=== PATIENT | male | born 1975 | race Caucasian/White ===

== ENCOUNTER 2020-11-05 20:28 | Emergency (ER) | payer SELFPAY ==
[~2020-11-05] VITALS: Ht 175.3 cm; Wt 68.7 kg
[2020-11-05] MEDS ORDERED: IV RINGERS SOLUTION,LACTATED 1,000 ML IV ONE ×2 (21:00→22:15)
[2020-11-05 21:25] LABS: BASO % 0 % (0-3); EOS % 0 % (0-3); HEMATOCRIT 47.2 % (39.0-53.0); HEMOGLOBIN 16.2 g/dL (13.0-17.5); LYMPH # 1.2 x10^3/uL (1.0-4.8); LYMPH % 11 % (24-48); MEAN CORPUSCULAR HEMOGLOBIN 34 pg (25-35); MEAN CORPUSCULAR HGB CONC 34 g/dL (31-37); MEAN CORPUSCULAR VOLUME 98 fL (79-100); MONO # 0.7 x10^3/uL (0.0-1.1); MONO % 7 % (0-9); NEUT # 8.7 x10^3uL (1.8-7.7); NEUT % 82 % (31-73); PLATELET COUNT 154 x10^3/uL (140-400); RED BLOOD COUNT 4.82 x10^6/uL (4.30-5.70); RED CELL DISTRIBUTION WIDTH 13.1 % (11.5-14.5); WHITE BLOOD COUNT 10.7 x10^3/uL (4.0-11.0)
[2020-11-05 21:32] LABS: CALCIUM 8.9 mg/dL (8.5-10.1); CREATININE 0.9 mg/dL (0.7-1.3); GFR 92.1; POTASSIUM 3.4 mmol/L (3.5-5.1)
--- NOTE | 2020-11-05 22:06 | PHYS DOC ---
Past History Past Medical History: Alcoholism, Hypertension Past Surgical History: No Surgical History Alcohol Use: Heavy Adult General Chief Complaint Chief Complaint: WITHDRAWAL HPI HPI Patient is a 44-year-old male with past medical history significant for alcoholism and hypertension who presents with a chief complaint of lightheadedness and concern for alcohol withdrawal. States he drinks about 4-5 mixed drinks daily and has been for a while but decided he has had enough and wanted to quit. States his last drink was 7 PM last night, so he is approximately 27 hours out from his last drink. Denies any headache, chest pain, shortness of breath, abdominal pain, dysuria, hematuria or blood in the stool. States that he did have an episode of nonbloody nonbilious emesis earlier in the day but felt fine afterwards and was able to eat. States that he was at home a couple hours ago cooking dinner for the family when he felt lightheaded and had to sit down. States that several years ago he tried to quit drinking and had a seizure and went to the hospital and was concerned that he was can have another seizure so came into the ED. States that he has not taken his hypertension medications either for several months because they upset his stomach. Denies any recent travel, illnesses, fevers, known ill contacts. Denies any other drug use. States that currently in the emergency department he is asymptomatic. Review of Systems Review of Systems Review of systems otherwise unremarkable except noted in HPI Current Medications Current Medications Current Medications Medications (Trade) Dose Ordered Sig/Inge Start Time Stop Time Status Last Admin Dose Admin Lactated Ringer's 1,000 ml @ 1,000 mls/hr 1X ONCE 11/05/20 21:00 11/05/20 21:59 DC 11/05/20 21:57 1,000 MLS/HR Allergies Allergies Allergies Coded Allergies Type Severity Reaction Last Updated Verified No Known Drug Allergies 11/05/20 No Physical Exam Physical Exam Constitutional: Well developed, well nourished, no acute distress, non-toxic appearance. [] HENT: Normocephalic, atraumatic, oropharynx dry, no oral exudates, Eyes: PERRLA, conjunctival injection, no discharge. [] Neck: Normal range of motion, no tenderness, supple, no stridor. [] Cardiovascular:Heart rate regular rhythm, no murmur [] Lungs & Thorax: Bilateral breath sounds clear to auscultation [] Abdomen: soft, no tenderness, no masses, no pulsatile masses. [] Skin: Warm, dry, no erythema, no rash. [] Back: No tenderness, Extremities: No tenderness, no cyanosis, no clubbing, ROM intact, no edema. [] Neurologic: Alert and oriented X 3, grossly normal motor function, grossly normal sensory function, cranial nerves normal, no focal deficits noted. [] Psychologic: Affect normal, judgement normal, mood normal. [] Current Patient Data Vital Signs Vital Signs Date Time Temp Pulse Resp B/P (MAP) Pulse Ox O2 Delivery O2 Flow Rate FiO2 11/05/20 20:35 97.6 70 20 164/105 (124) 97 Room Air Lab Results Laboratory Tests Test 11/05/20 21:00 White Blood Count 10.7 x10^3/uL (4.0-11.0) Red Blood Count 4.82 x10^6/uL (4.30-5.70) Hemoglobin 16.2 g/dL (13.0-17.5) Hematocrit 47.2 % (39.0-53.0) Mean Corpuscular Volume 98 fL (79-100) Mean Corpuscular Hemoglobin 34 pg (25-35) Mean Corpuscular Hemoglobin Concent 34 g/dL (31-37) Red Cell Distribution Width 13.1 % (11.5-14.5) Platelet Count 154 x10^3/uL (140-400) Neutrophils (%) (Auto) 82 % (31-73) H Lymphocytes (%) (Auto) 11 % (24-48) L Monocytes (%) (Auto) 7 % (0-9) Eosinophils (%) (Auto) 0 % (0-3) Basophils (%) (Auto) 0 % (0-3) Neutrophils # (Auto) 8.7 x10^3uL (1.8-7.7) H Lymphocytes # (Auto) 1.2 x10^3/uL (1.0-4.8) Monocytes # (Auto) 0.7 x10^3/uL (0.0-1.1) Eosinophils # (Auto) 0.0 x10^3/uL (0.0-0.7) Basophils # (Auto) 0.0 x10^3/uL (0.0-0.2) Sodium Level 146 mmol/L (136-145) H Potassium Level 3.4 mmol/L (3.5-5.1) L Chloride Level 103 mmol/L (98-107) Carbon Dioxide Level 32 mmol/L (21-32) Anion Gap 11 (6-14) Blood Urea Nitrogen 7 mg/dL (8-26) L Creatinine 0.9 mg/dL (0.7-1.3) Estimated GFR (Cockcroft-Gault) 92.1 Glucose Level 124 mg/dL (70-99) H Calcium Level 8.9 mg/dL (8.5-10.1) EKG EKG [] Radiology/Procedures Radiology/Procedures [] Heart Score C/O Chest Pain: No Risk Factors: Risk Factors: DM, Current or recent (<one month) smoker, HTN, HLP, family history of CAD, obesity. Risk Scores: Risk Factors: DM, Current or recent (<one month) smoker, HTN, HLP, family history of CAD, obesity. Course & Med Decision Making Course & Med Decision Making Patient is a 44-year-old male who presents due to concern for alcohol withdrawal and lightheadedness Vital signs notable for hypertension. Physical exam noted above. EKG noted above and normal. Glucose normal. Laboratory analysis notable for mild hypernatremia and hypokalemia. Patient given Zofran and diazepam. On reassessment patient was able to take p.o. without issue. Patient was able to ambulate without issue. Patient asymptomatic in the ED. Discussed all findings with family. Recommended a short course of diazepam at home. Also recommended appropriate nutrition, hydration and daily vitamin. Gave contact information for primary care physician in [facility]. Advised to call primary care physician first thing in the morning to discuss ED visit and set up a follow-up as soon as he can. Gave strict return precautions to the ED. Family grateful, verbalized understanding and agreed with plan of discharge. [] Dragon Disclaimer Dragon Disclaimer This electronic medical record was generated, in whole or in part, using a voice recognition dictation system. Departure Departure: Impression: Primary Impression: Alcohol withdrawal Additional Impression: Lightheadedness Disposition: 01 DC HOME SELF CARE/HOMELESS Condition: GOOD Referrals: PCP,NO (PCP) ESTELLE GARCIAS MD, RACHEL Patient Instructions: Alcohol Withdrawal, [id number], Alcohol and Nutrition Additional Instructions: Please read all the attached information. Over the next couple of days, please be sure and take your diazepam as prescribed. Please take 2 of your diazepam daily for 2 days then take 1 a day for 3 days. Also as discussed, please try to eat appropriate meals at least 3 times a day and stay well-hydrated. Please start a One-A-Day vitamin as well. Please call one of the primary care physicians noted in your discharge to establish care if you do not have a primar care physician. Please call your primary care physician or one of the other primary care physicians first thing in the morning to discuss ED visit and set up a follow-up as soon as you can. Please come back to the ED with new or concerning symptoms as discussed. Scripts Diazepam (DIAZEPAM) 10 Mg Tablet 10 MG PO BID for alcohol withdrawl for 3 Days, #7 TAB Prov: NAZ PALOMO MD 11/05/20 Problem Qualifiers NAZ PALOMO MD Nov 05, 2020 22:06
[2020-11-05] MEDS ORDERED: diazePAM 5 MG TABLET. PO ONE (22:15)
[2020-11-05] MEDS ORDERED: ONDANSETRON PF 4 MG/2 ML VIAL. IVP ONE (22:15)
[2020-11-05 22:40] VITALS: BP 152/109
[2020-11-05] MEDS ORDERED: DIAZ10TA4 PO (23:20)
--- NOTE | 2020-11-06 00:29 | EKG ---
[address] [address] Test Date: 2020-11-05 Test Time: 21:29:05 Pat Name: SHERLY JOSHI Department: Room: Gender: M Hand Painter: ARNOLD : 1975 Requested By: NAZ PALOMO Order Number: [id number] Reading MD: Measurements Intervals Mcneal Rate: 64 P: 0 MI: 148 QRS: 16 QRSD: 84 T: 16 QT: 432 QTc: 450 Interpretive Statements SINUS RHYTHM NORMAL ECG RI6.02 No previous ECG available for comparison
== END 2020-11-05 23:31 | disposition home or self-care (01) ==
LOC: ER 20:28
DX: F10.239 Alcohol dependence with withdrawal, unspecified (principal); I10 Essential (primary) hypertension; R42 Dizziness and giddiness; Y90.9 Presence of alcohol in blood, level not specified
CPT/HCPCS: 36415; 80048; 85025; 93005; 96361; 96374; 99285; J2405; J7120

== ENCOUNTER → 2021-07-18 | Outpatient (CLI) | payer OTHER ==
[~2021-07-18] MED LIST: DIAZ10TA4 PO
--- NOTE | 2021-07-18 12:27 | RAD ---
CT of the abdomen and pelvis without contrast. 07/18/2021 8:06 AM Indication: Reason: ABNORMAL FINDING OF BLOOD CHEMISTRY, ALCOHOL ABUSE Comparison study: None Technique: Multidetector CT imaging of the abdomen pelvis is obtained without administration of contr ast. Findings: Visualized lung bases are unremarkable. There is a 2.8 cm abnormal area of relative increased density noted in the superior right liver (axi al image 19). Lesion abuts the right hepatic vein. The gallbladder is unremarkable. Adrenal glands ar e unremarkable. Liver is diffusely low in attenuation suggesting a component of hepatic steatosis. The liver is enlar ged measuring 20 cm longitudinally. Liver contour is grossly unremarkable. The spleen is normal in size. Portal vein is normal in size. 2 punctate nonobstructing stones are noted in the inferior pole the left kidney. No evidence of hydro nephrosis or obstruction is seen. Punctate nonobstructing stone noted inferior pole right kidney. Piotr ateral ureters however unremarkable in course and contour. The bladder is grossly unremarkable. Pancreas is unremarkable. No bowel obstruction is identified. No overt inflammatory changes involvin g visualized bowel are identified. The appendix is unremarkable. Fluid or free air seen in the abdome n or pelvis. No acute osseous changes are identified. Degenerative changes of the lumbar spine are no martin at L5-S1 where there is loss of disc space, posterior projecting disc osteophyte complex. Impression: 1. Hepatomegaly, probable hepatic steatosis . 2. 2.8 cm relatively hyperdense lesion in the right lobe of liver abutting the proximal right hepatic vein. Evaluation is limited given lack of contrast. Findings could represent focal area of fatty spa ring. Solid mass is not excluded. Hepatic protocol MRI recommended. 3. Punctate nonobstructing kidney stones bilaterally CT DOSING PQRS STATEMENT: One or more of the following individualized dose reduction techniques were utilized for this examinat ion: 1. Automated exposure control 2. Adjustment of the mA and/or kV according to patient size 3. Use of iterative reconstruction technique Electronically signed by: Unruly Rebollar MD (07/18/2021 12:25 PM) [id number]
== END ==
LOC: CT 07:55
PROVIDERS: ATTEND Family Medicine
DX: R16.0 Hepatomegaly, not elsewhere classified (principal); K76.89 Other specified diseases of liver; N20.0 Calculus of kidney; R79.9 Abnormal finding of blood chemistry, unspecified; F10.11 Alcohol abuse, in remission
CPT/HCPCS: 74176